=== PATIENT | female | born 1970 | race Caucasian/White ===

== ENCOUNTER → 2021-08-03 | Outpatient (CLI) | payer OTHER ==
[~2021-08-03] MED LIST: CIPRO500 MG PO
[2021-08-03 16:47] LABS: HEMOGLOBIN 13.6 gm/dl (12.3-15.3); RED BLOOD COUNT 4.28 M/UL (4.00-5.10); WHITE BLOOD COUNT 6.3 K/UL (4.5-11.0)
[2021-08-03 17:42] LABS: BUN/CREATININE RATIO 32 (0-10)
== END ==
LOC: LAB 15:27
PROVIDERS: Nurse Practitioner
DX: R53.83 Other fatigue (principal); R10.84 Generalized abdominal pain; R19.7 Diarrhea, unspecified; M17.10 Unilateral primary osteoarthritis, unspecified knee; Z88.8 Allergy status to other drugs, medicaments and biological substances; Z88.2 Allergy status to sulfonamides; Z88.6 Allergy status to analgesic agent; Z88.1 Allergy status to other antibiotic agents
CPT/HCPCS: 36415; 80053; 85025

== ENCOUNTER 2021-08-07 05:51 | Emergency (ER) | payer OTHER ==
[2021-08-07 06:52] LABS: HEMOGLOBIN 12.9 gm/dl (12.3-15.3); RED BLOOD COUNT 4.16 M/UL (4.00-5.10); WHITE BLOOD COUNT 6.3 K/UL (4.5-11.0)
[2021-08-07 07:15] LABS: BUN/CREATININE RATIO 29 (0-10)
[2021-08-07] MEDS ORDERED: CIPRO500 MG PO (07:53)
== END 2021-08-07 08:48 | disposition home or self-care (01) ==
LOC: ER1 05:51
PROVIDERS: Emergency Medicine
DX: N39.0 Urinary tract infection, site not specified (principal); N20.0 Calculus of kidney; N28.1 Cyst of kidney, acquired
CPT/HCPCS: 80053; 81001; 83690; 85025; 87086; 99284; Q9967

== ENCOUNTER 2021-08-18 14:50 | Emergency (ER) | payer OTHER | END 2021-08-18 17:12 | disposition home or self-care (01) | LOC: ER1 14:50 | DX: R51.9 Headache, unspecified (principal); G40.909 Epilepsy, unspecified, not intractable, without status epilepticus; Z86.73 Personal history of transient ischemic attack (TIA), and cerebral infarction without residual deficits; Z88.8 Allergy status to other drugs, medicaments and biological substances; Z88.6 Allergy status to analgesic agent | CPT/HCPCS: 96374; 96375; 99284; J1200; J1885; J2765 ==

== ENCOUNTER 2021-08-20 00:55 | Emergency (ER) | payer OTHER ==
[2021-08-20] MEDS ORDERED: TORADOL 10 MG T10 MG PO (04:47)
== END 2021-08-20 04:47 | disposition home or self-care (01) ==
LOC: ER1 00:55
DX: R51.9 Headache, unspecified (principal); Z86.73 Personal history of transient ischemic attack (TIA), and cerebral infarction without residual deficits
CPT/HCPCS: 70450; 96374; 96375; 99284; J1885; J2765

== ENCOUNTER 2021-08-20 18:42 | Emergency (ER) | payer OTHER ==
[~2021-08-20 18:42] MED LIST changes: +TORADOL 10 MG T10 MG PO
== END 2021-08-20 21:30 | disposition left against medical advice (07) ==
LOC: ER1 18:42
DX: Z53.21 Procedure and treatment not carried out due to patient leaving prior to being seen by health care provider (principal)

== ENCOUNTER 2021-08-24 20:22 | Emergency (ER) | payer OTHER, MEDICAID | END 2021-08-25 03:24 | disposition home or self-care (01) | LOC: ER1 20:22 | DX: T74.11XA Adult physical abuse, confirmed, initial encounter (principal); R51.9 Headache, unspecified; F60.9 Personality disorder, unspecified | CPT/HCPCS: 96374; 99284 ==

== ENCOUNTER 2021-08-28 06:15 | Emergency (ER) | payer OTHER ==
[2021-08-28 10:48] LABS: HEMOGLOBIN 12.1 gm/dl (12.3-15.3); RED BLOOD COUNT 3.87 M/UL (4.00-5.10); WHITE BLOOD COUNT 8.4 K/UL (4.5-11.0)
[2021-08-28 12:53] LABS: BUN/CREATININE RATIO 39 (0-10)
[2021-08-28] MEDS ORDERED: CIPRO500 MG PO (13:59)
== END 2021-08-28 15:48 | disposition home or self-care (01) ==
LOC: ER1 06:15
PROVIDERS: Physician Assistant
DX: N39.0 Urinary tract infection, site not specified (principal); Z87.442 Personal history of urinary calculi; Z90.710 Acquired absence of both cervix and uterus; Z79.01 Long term (current) use of anticoagulants; Z88.5 Allergy status to narcotic agent; Z88.2 Allergy status to sulfonamides
CPT/HCPCS: 36415; 74018; 80053; 81001; 85025; 87077; 87086; 87186; 96374; 99284; J2543

== ENCOUNTER 2021-08-29 22:51 | Emergency (ER) | payer OTHER ==
[2021-08-30 00:55] LABS: BUN/CREATININE RATIO 24 (0-10)
[2021-08-30 02:25] LABS: HEMOGLOBIN 10.8 gm/dl (12.3-15.3); WHITE BLOOD COUNT 7.2 K/UL (4.5-11.0)
[2021-08-30 02:26] LABS: RED BLOOD COUNT 3.48 M/UL (4.00-5.10)
== END 2021-08-30 04:45 | disposition home or self-care (01) ==
LOC: ER1 22:51
PROVIDERS: Student in an Organized Health Care Education/Training Program
DX: R07.89 Other chest pain (principal); E78.5 Hyperlipidemia, unspecified; E03.9 Hypothyroidism, unspecified; Z90.710 Acquired absence of both cervix and uterus
CPT/HCPCS: 71045; 80053; 82550; 82553; 84484; 85025; 93005; 94664; 94760; 99285

== ENCOUNTER 2021-09-07 03:19 | Emergency (ER) | payer OTHER | END 2021-09-07 08:30 | disposition home or self-care (01) | LOC: ER1 03:19 | DX: R51.9 Headache, unspecified (principal) | CPT/HCPCS: 70450; 96372; 99284; J1885 ==

== ENCOUNTER 2021-09-23 11:04 | Emergency (ER) | payer OTHER ==
[2021-09-23 12:42] LABS: HEMOGLOBIN 12.1 gm/dl (12.3-15.3); RED BLOOD COUNT 3.9 M/UL (4.00-5.10); WHITE BLOOD COUNT 9.9 K/UL (4.5-11.0)
[2021-09-23 12:59] LABS: BUN/CREATININE RATIO 21 (0-10)
[2021-09-23] MEDS ORDERED: CEFDINIR300 MG PO (13:21)
[2021-09-23] MEDS ORDERED: PYRIDIUM200 MG PO (13:21)
[2021-09-23] MEDS ORDERED: CEPHALEXIN500 MG PO (13:37)
== END 2021-09-23 13:42 | disposition home or self-care (01) ==
LOC: ER1 11:04
PROVIDERS: Physician Assistant
DX: N39.0 Urinary tract infection, site not specified (principal); G40.909 Epilepsy, unspecified, not intractable, without status epilepticus; Z90.710 Acquired absence of both cervix and uterus; Z79.899 Other long term (current) drug therapy; Z79.02 Long term (current) use of antithrombotics/antiplatelets; Z88.6 Allergy status to analgesic agent; Z88.2 Allergy status to sulfonamides; Z88.8 Allergy status to other drugs, medicaments and biological substances
CPT/HCPCS: 80053; 81001; 85025; 87077; 87086; 87186; 99283

== ENCOUNTER 2021-09-24 21:52 | Emergency (ER) | payer OTHER ==
[~2021-09-24 21:52] MED LIST changes: +CEFDINIR300 MG PO; +CEPHALEXIN500 MG PO; +PYRIDIUM200 MG PO
[2021-09-24 23:17] LABS: HEMOGLOBIN 12.3 gm/dl (12.3-15.3); RED BLOOD COUNT 3.98 M/UL (4.00-5.10); WHITE BLOOD COUNT 5.6 K/UL (4.5-11.0)
[2021-09-24 23:34] LABS: BUN/CREATININE RATIO 19 (0-10)
== END 2021-09-25 02:06 | disposition home or self-care (01) ==
LOC: ER1 21:52
PROVIDERS: Nurse Practitioner
DX: N39.0 Urinary tract infection, site not specified (principal); Z88.1 Allergy status to other antibiotic agents; Z88.2 Allergy status to sulfonamides; Z88.8 Allergy status to other drugs, medicaments and biological substances; Z87.442 Personal history of urinary calculi
CPT/HCPCS: 80053; 80076; 81001; 82150; 83605; 83690; 85025; 87086; 93005; 99284; Q9967

== ENCOUNTER 2021-09-27 21:12 | Emergency (ER) | payer OTHER | END 2021-09-28 03:04 | disposition home or self-care (01) | LOC: ER1 21:12 | DX: S90.32XA Contusion of left foot, initial encounter (principal); S90.31XA Contusion of right foot, initial encounter; W01.0XXA Fall on same level from slipping, tripping and stumbling without subsequent striking against object, initial encounter; Y92.009 Unspecified place in unspecified non-institutional (private) residence as the place of occurrence of the external cause | CPT/HCPCS: 73630; 99283 ==

== ENCOUNTER 2021-10-23 07:01 | Emergency (ER) | payer OTHER, MEDICAID ==
[~2021-10-23 07:01] MED LIST changes: +AMITRIPTYLINE H25 MG PO; +ATORVASTATIN CA10 MG PO; +AZO D-MANNOSE500 MG PO; +CALCIUM 500 +1 EACH PO; +CLOPIDOGREL75 MG PO; +CRANBERRY TABLET PO; +DEPAKOTE500 MG PO; +DIAZEPAM10 MG VG; +DOCUSATE SODIU100 MG PO; +ESTRADIOL42.5 GM VG; +GUANFACINE HCL E1 MG PO; +HYDROXYZINE HCL50 MG PO; +LEVOTHYROXINE100 MCG PO; +MECLIZINE HCL12.5 MG PO; +MELATONIN10 M2 PO; +MULTIVITAMIN1 EACH PO; +OXYBUTYNIN CHLO10 MG PO; +PRAZOSIN HCL1 MG PO; +PROAIR HFA8.5 GM INH; +PROMETHAZINE HC25 M1 PO; +PROTONIX 40 MG40 M1 PO; +REXULTI3 MG PO; +ROBAXIN 750 MG750 MG PO; +SUMATRIPTAN SUC25 MG PO; +TOPIRAMATE100 MG PO; +UREX1 GM PO
== END 2021-10-23 10:42 | disposition home or self-care (01) ==
LOC: ER1 07:01
DX: S09.90XA Unspecified injury of head, initial encounter (principal); Z88.6 Allergy status to analgesic agent; Z88.2 Allergy status to sulfonamides; Z88.8 Allergy status to other drugs, medicaments and biological substances; W01.10XA Fall on same level from slipping, tripping and stumbling with subsequent striking against unspecified object, initial encounter; Y92.009 Unspecified place in unspecified non-institutional (private) residence as the place of occurrence of the external cause
CPT/HCPCS: 70450; 72125; 99284

== ENCOUNTER 2021-10-23 23:51 | Emergency (ER) | payer OTHER | END 2021-10-24 00:40 | disposition home or self-care (01) | LOC: ER1 23:51 | DX: S09.90XA Unspecified injury of head, initial encounter (principal); R00.1 Bradycardia, unspecified; I10 Essential (primary) hypertension; W22.8XXA Striking against or struck by other objects, initial encounter | CPT/HCPCS: 93005; 99283 ==

== ENCOUNTER 2021-10-25 14:34 | Emergency (ER) | payer OTHER ==
[2021-10-25 15:35] LABS: RED BLOOD COUNT 3.81 M/UL (4.00-5.10); WHITE BLOOD COUNT 6.6 K/UL (4.5-11.0)
[2021-10-25 15:57] LABS: BUN/CREATININE RATIO 21 (0-10)
== END 2021-10-25 19:36 | disposition home or self-care (01) ==
LOC: ER1 14:34
PROVIDERS: Physician Assistant Medical
DX: F07.81 Postconcussional syndrome (principal); Z86.73 Personal history of transient ischemic attack (TIA), and cerebral infarction without residual deficits; J45.909 Unspecified asthma, uncomplicated; G40.909 Epilepsy, unspecified, not intractable, without status epilepticus; Z79.899 Other long term (current) drug therapy; W01.10XA Fall on same level from slipping, tripping and stumbling with subsequent striking against unspecified object, initial encounter
CPT/HCPCS: 70496; 80053; 81001; 82550; 82553; 84484; 85025; 93005; 96374; 99284; J2405; Q9967

== ENCOUNTER 2021-10-27 06:58 | Emergency (ER) | payer OTHER ==
[2021-10-27 07:58] LABS: HEMOGLOBIN 12.2 gm/dl (12.3-15.3); RED BLOOD COUNT 3.99 M/UL (4.00-5.10)
[2021-10-27 08:30] LABS: BUN/CREATININE RATIO 19 (0-10)
[2021-10-27] MEDS ORDERED: CEPHALEXIN500 MG PO (09:10)
== END 2021-10-27 09:18 | disposition home or self-care (01) ==
LOC: ER1 06:58
PROVIDERS: Physician Assistant
DX: N30.90 Cystitis, unspecified without hematuria (principal); G40.909 Epilepsy, unspecified, not intractable, without status epilepticus; Z90.89 Acquired absence of other organs; Z90.49 Acquired absence of other specified parts of digestive tract; Z87.440 Personal history of urinary (tract) infections; Z88.8 Allergy status to other drugs, medicaments and biological substances; Z88.2 Allergy status to sulfonamides; Z88.1 Allergy status to other antibiotic agents; Z88.6 Allergy status to analgesic agent
CPT/HCPCS: 80053; 81001; 83690; 85025; 87086; 99284